=== PATIENT | male | born 1955 | race Caucasian/White ===

== ENCOUNTER → 2017-09-22 | Outpatient (CLI) | payer OTHER ==
[~2017-09-22] MED LIST: ASPIRIN 32325 MG/TAB PO; COLCHICINE0.6 MG PO; COZAAR50 MG PO; EFFIENT10 MG PO; HCTZ PO; HYDRALAZINE50 MG PO; LISINOPRIL20 MG PO; METOPROLOL25 MG PO; SYMBICORT1 AER IH
== END ==
LOC: COL.RAD 09:28
DX: K43.9 Ventral hernia without obstruction or gangrene (principal)

== ENCOUNTER → 2018-03-31 | Outpatient (REF) | LOC: ZLAB.WCH 12:08 | DX: Z01.89 Encounter for other specified special examinations (principal) | CPT/HCPCS: G0103 ==